=== PATIENT | male | born 1960 | race Caucasian/White ===

== ENCOUNTER 2017-06-21 07:54 | Outpatient (CLI) | payer OTHER ==
[~2017-06-21 07:54] MED LIST: ATOR20TA64 PO; LISI2.5T48 PO; METF750T PO; MONT10TA22 PO; SERT50TA12 PO; SITA100T7 PO; WARF5TAB2 PO
[2017-06-21] MEDS ORDERED: IOHEXOL 100 ML IV ONE (08:34)
== END 2017-06-21 20:47 | disposition home or self-care (01) ==
LOC: SCT 07:54
PROVIDERS: ATTEND Urology
DX: N28.1 Cyst of kidney, acquired (principal); K86.1 Other chronic pancreatitis; K56.41 Fecal impaction; R31.29 Other microscopic hematuria; Z90.49 Acquired absence of other specified parts of digestive tract
CPT/HCPCS: 74178; Q9967

== ENCOUNTER 2019-02-08 16:33 | Inpatient (IN) | payer OTHER ==
[~2019-02-08] VITALS: Ht 193 cm; Wt 117.0 kg
[~2019-02-08 16:33] MED LIST changes: +SITA100T11 PO; -SITA100T7 PO
--- NOTE | 2019-02-08 16:38 | NUR ---
Patient to ER bed 03 to gown for evaluation. Side rails up.
[2019-02-08 16:41] VITALS: BP_SYST 121
[2019-02-08] MEDS ORDERED: MORPHINE 4 MG/ML INJ. SYRINGE IVP ONE (16:45)
--- NOTE | 2019-02-08 16:45 | NUR ---
DR CANO at bedside for ER evaluation
--- NOTE | 2019-02-08 16:50 | NUR ---
Patient comes to ER via ambulance for complications following a fall 1 week ago. Patient is non verbal and obtaining a history is difficult. Sister is at bedside and states that the pain has progressively gotten worse in his RT leg after the fall, so today they called the ambulance for transport to ER. Patient is non ambulatory. Legs are swolen and bruised. Sister states that he has some neurological disorder that has not been diagnosed. No other complaint or injury at this time.
[2019-02-08 17:09] LABS: BASOPHILS % (AUTO) 0.5 % (0.0-2.0); EOSINOPHILS # (AUTO) 0.2 K/uL (0.0-0.4); EOSINOPHILS % (AUTO) 2.8 % (0.0-4.0); HEMATOCRIT 30.5 % (36-54); HEMOGLOBIN 10.3 g/dL (14.0-18.0); LYMPHOCYTES # (AUTO) 1.3 K/uL (1.0-5.5); LYMPHOCYTES % (AUTO) 21.2 % (20.5-51.5); MEAN CORPUSCULAR HEMOGLOBIN 29 pg (27-31); MEAN CORPUSCULAR HGB CONC 34 % (32-36); MEAN CORPUSCULAR VOLUME 85 fL (79.0-98.0); MONOCYTES # (AUTO) 0.5 K/uL (0.0-1.0); MONOCYTES % (AUTO) 7.8 % (1.7-9.3); NEUTROPHILS % (AUTO) 67.7 % (40.0-70.0); PLATELET COUNT (AUTO) 262 K/uL (130-430); RED BLOOD CELL COUNT(AUTO) 3.58 MIL/uL (4.2-6.2); RED CELL DISTRIBUTION WIDTH 12.9 % (9.0-15.0); WHITE BLOOD COUNT (AUTO) 5.9 K/uL (4.8-10.8)
[2019-02-08 17:14] LABS: CALCIUM 9.4 mg/dL (8.4-11.0); CREATININE 0.6 mg/dL (0.55-1.30)
[2019-02-08 17:19] LABS: ALBUMIN 3.2 g/dL (3.4-4.8); TOTAL BILIRUBIN 0.8 mg/dL (0.0-1.0)
--- NOTE | 2019-02-08 17:32 | NUR ---
Radiology at bedside for XRay
[2019-02-08 18:13] LABS: BILIRUBIN,URINE NEGATIVE (NEGATIVE); BLOOD, URINE 1+ (NEGATIVE); CLARITY/URINE HAZY (CLEAR); COLOR,URINE YELLOW (YELLOW); GLUCOSE,URINE NEGATIVE (NEGATIVE); KETONES,URINE NEGATIVE (NEGATIVE); LEUKOCYTE ESTERASE ,URINE 3+ (NEGATIVE); NITRITE, URINE POSITIVE (NEGATIVE); PROTEIN URINE TRACE (NEGATIVE)
[2019-02-08 18:20] LABS: BACTERIA,URINE MANY /HPF (None Seen); MUCUS,URINE None Seen /LPF (None Seen); RBC,URINE NONE SEEN /HPF (0-3); WBC,URINE 50-80 /HPF (0-3)
--- NOTE | 2019-02-08 18:42 | NUR ---
US TECH at bedside for venous doppler
[2019-02-08] MEDS ORDERED: NACL 0.9% 1,000 ML IV ONE ×2 (18:45→19:15)
--- NOTE | 2019-02-08 18:55 | NUR ---
Medicated per MD orders. IVF infusing with no s/s of infiltration at this time. Will cont to monitor
[2019-02-08] MEDS ORDERED: LISI-209 PO (19:44)
[2019-02-08] MEDS ORDERED: GLU850 PO (19:44)
--- NOTE | 2019-02-08 19:45 | NUR ---
Med rec completed and confirmed verbally by sister.
--- NOTE | 2019-02-08 20:00 | NUR ---
Ultrasound at bedside. Will move pt to MST after ultrasound is done.
--- NOTE | 2019-02-08 20:21 | NUR ---
ADMIT NOTE Received pt from ER to the floor with a diagnosis of FEMUR FRACTURE. Admission process initiated. patient oriented to pain management, safety and call light-teach back done.
[2019-02-08 20:38] VITALS: BP_SYST 146
--- NOTE | 2019-02-08 20:45 | NUR ---
INITIAL NOTES PT IS AWAKE , ALERT BUT UNABLE TO TALK WELL ( UNABLE TO PRODUCE SOUND ) . PT S SISTER OMID AT BEDSIDE , ON ROOM AIR , VITALS ARE STABLE ; PER SISTER PT IS VERY DEPRESSED AND HAD SUICIDAL THOUGHTS LAST WEEK , NO ACTIVE SUICIDAL THOUGHTS OR IDEATION NOTED AT THIS TIME . ASSESSMENT DONE , NOTICED R KNEE WITH IMMOBILIZER , PT HAS FALL LAST WEEK PER SISTER , LINDSEY LEGS WITH EDEMA BUT MORE ON THE R LEG ; NO C/O ANY PAIN AT THIS TIME PT IS INCONTINENT WITH URINE , PT CLEANED , NOTICED LINDSEY KNEE WITH DRY SCAB AND HEALING ABRASION , OPEN TOAIR , NO DRAINAGE , R 2 ND TOE WITH DRY SCAB AND 5 TH TOE WITH BLISTER , OPEN TO AIR , ABDOMINAL FOLD IS DENUDED , CLEANED WITH NS , PAT DRIED AND APPLIED INTER DRY . R BUTTOCK NOTED WITH REDNESS AND SCRATCHES . PT CLEANED , TURNED AND REPOSITIONED. ALL NEEDS MET , IV TO THE LEFT AC 20 G, SL , NO S/S OF ANY INFILTRATION NOTED ; WILL CONTINUE TO MONITOR PT .
--- NOTE | 2019-02-08 21:00 | NUR ---
Patient will be admitted to care of Dr Cannon. Admitted to Tele unit. Will go to room 135. Belongings list completed. Summary report printed. Report will be given at bedside.
--- NOTE | 2019-02-08 21:20 | NUR ---
Transfer to Tele via ACLS protocol. Licensed nurse present. IV present no signs or symptoms of infiltration.
[2019-02-08] MEDS ORDERED: DEXTROSE 50% JECT 50 ML DISP.SYRIN IVP PRN (22:00)
--- NOTE | 2019-02-08 22:50 | NUR ---
MD ROUNDS: NOTICED THAT DR RIVAS MADE ROUNDS , WILL CHECK ALL ORDERS .
--- NOTE | 2019-02-08 23:05 | NUR ---
RECEIVED ZARAGOZA INSERTION ORDER FROM DR RIVAS . CALLED AND TALKED WITH SISTER OMID BEFORE INSERTING ZARAGOZA . SISTER AGREED TO INSERT ZARAGOZA .
--- NOTE | 2019-02-08 23:15 | NUR ---
ZARAGOZA CATH: # 12 FR Zaragoza catheter with 10 cc bulb inserted by Bonilla .Marialuisa Hartman with use of sterile technique. Bulb inflated with 10 cc sterile water. Immediate return of 100cc urine noted. Bedside drainage bag placed below level of bladder. Urine sample collected and sent to lab .Pt tolerated procedure well .
[2019-02-09 00:06] VITALS: BP_SYST 129
--- NOTE | 2019-02-09 00:27 | NUR ---
CONSULTATION PAGED/CALLED Reason for Consultation: UNSTEADY GAIT Person Who was Notified: COLLEEN Consulting Physician: EDDIE BETANCOURT Pole Maker Specialty: Ordering Physician: ROB
--- NOTE | 2019-02-09 00:49 | NUR ---
CONSULTATION PAGED/CALLED Reason for Consultation: FX FEMUR Person Who was Notified:COLLEEN Consulting Physician: DENISSE . DOCTOR MARCY IS STRIP DEBURRER Second Floor Operator Specialty: Ordering Physician: ROB
[2019-02-09 01:00] LABS: BILIRUBIN,URINE NEGATIVE (NEGATIVE); CLARITY/URINE CLEAR (CLEAR); COLOR,URINE YELLOW (YELLOW); GLUCOSE,URINE NEGATIVE (NEGATIVE); KETONES,URINE NEGATIVE (NEGATIVE); LEUKOCYTE ESTERASE ,URINE TRACE (NEGATIVE); NITRITE, URINE POSITIVE (NEGATIVE); PROTEIN URINE NEGATIVE (NEGATIVE)
[2019-02-09 01:06] LABS: BLOOD, URINE TRACE (NEGATIVE)
--- NOTE | 2019-02-09 01:07 | NUR ---
RN ROUNDS: PT IS SLEEPING ON AND OFF , NOT IN ANY ACUTE DISTRESS; WILL CONTINUE TO MONITOR PT .
[2019-02-09 01:08] LABS: BACTERIA,URINE MANY /HPF (None Seen)
--- NOTE | 2019-02-09 02:25 | NUR ---
RN ROUNDS: PT IS SLEEPING , NOT IN ANY ACUTE DISTRESS; WILL CONTINUE TO MONITOR PT .
--- NOTE | 2019-02-09 04:13 | NUR ---
RN NOTES: PT IS SLEEPING , RESPIRATION IS EVEN AND NON LABORED ; ZARAGOZA IS DRAINING YELLOW COLOR URINE TO GRAVITY . WILL CONTINUE TO MONITOR PT .
--- NOTE | 2019-02-09 06:09 | NUR ---
BS: BS 129 , NO INSULIN COVERAGE NEEDED ; ALL NEEDS MET
[2019-02-09 06:32] LABS: BASOPHILS % (AUTO) 0.8 % (0.0-2.0); EOSINOPHILS # (AUTO) 0.2 K/uL (0.0-0.4); EOSINOPHILS % (AUTO) 5.2 % (0.0-4.0); HEMATOCRIT 26.5 % (36-54); HEMOGLOBIN 8.9 g/dL (14.0-18.0); LYMPHOCYTES # (AUTO) 1.2 K/uL (1.0-5.5); LYMPHOCYTES % (AUTO) 26.9 % (20.5-51.5); MEAN CORPUSCULAR HEMOGLOBIN 29 pg (27-31); MEAN CORPUSCULAR HGB CONC 34 % (32-36); MEAN CORPUSCULAR VOLUME 85 fL (79.0-98.0); MONOCYTES # (AUTO) 0.4 K/uL (0.0-1.0); MONOCYTES % (AUTO) 8.5 % (1.7-9.3); NEUTROPHILS # (AUTO) 2.7 K/uL (1.8-7.7); NEUTROPHILS % (AUTO) 58.6 % (40.0-70.0); PLATELET COUNT (AUTO) 225 K/uL (130-430); PROTHROMBIN TIME 10.1 SECS (9.5-12.5); RED CELL DISTRIBUTION WIDTH 12.5 % (9.0-15.0); WHITE BLOOD COUNT (AUTO) 4.6 K/uL (4.8-10.8)
[2019-02-09 06:48] LABS: ALBUMIN 2.5 g/dL (3.4-4.8); CALCIUM 8.8 mg/dL (8.4-11.0); CREATININE 0.5 mg/dL (0.55-1.30); FREE T4 (FREE THYROXINE) 1.2 ng/dL (0.6-1.6); POTASSIUM 3.8 mmol/L (3.5-5.1); THYROID STIMULATING HORMONE 0.23 uIu/mL (0.34-4.82); TOTAL BILIRUBIN 0.7 mg/dL (0.0-1.0)
--- NOTE | 2019-02-09 06:49 | NUR ---
CLOSING NOTES: PT IS SLEEPING , NOT IN ANY ACUTE DISTRESS; ALL NEEDS MET ; NO SIGNIFICANT CHANGES IN THE CONDITION ; WILL CONTINUE TO MONITOR AND WILL ENDORSE TO NEXT SHIFT NURSE .
--- NOTE | 2019-02-09 06:55 | NUR ---
MD ROUNDS: DR RIVAS MADE ROUNDS; NOTIFIED MD THAT PER PTS SISTER ," PT HAD SUICIDAL THOUGHTS AND IDEATIONS LAST WEEK AND PT DEPRESSED , ", MD ORDERED PSYCH CONSULT WITH DR HAUSER . ALSO NOTIFIED MD THAT PT S UA IS POSITIVE .MD STATED HE WILL ORDER ANTIBIOTICS.
--- NOTE | 2019-02-09 06:57 | NUR ---
CONSULTATION PAGED/CALLED Reason for Consultation: [] SUICIDAL THOUGHTS Person Who was Notified: [] [place] Consulting Physician: [] DR HAUSER, DR HANSEN J2Ee Engineer Specialty: [] PSYCH Ordering Physician: [] DR RIVAS
--- NOTE | 2019-02-09 07:08 | NUR ---
DR RIVAS NOTIFIED PT HAS NO PAIN MEDICATION ORDERED , ORDERED NORCO 5/325 Q4 HRS FOR MODERATE PAIN ; ORDER ENTERED .
[2019-02-09 07:50] VITALS: BP_SYST 116
[2019-02-09] MEDS: SERTRALINE HCL 50 MG TABLET PO SCH (07:58)
[2019-02-09] MEDS: ENOXAPARIN SODIUM 40 MG/0.4 ML SYRINGE SUBCUT SCH (07:59)
[2019-02-09] MEDS: LISINOPRIL 5 MG TABLET PO SCH (07:59)
[2019-02-09] MEDS ORDERED: GENTAMICIN 120 mg/100 mL NS 100 ML IV ONE (08:00)
[2019-02-09] MEDS: cefTRIAXone 1 GM in D5W 50 ML IV SCH (09:04)
[2019-02-09] MEDS: HYDROcodone/ACETAMIN 5-325 MG TAB (NORCO/ VICODIN) PO PRN ×2 (09:10→18:24)
--- NOTE | 2019-02-09 10:19 | NUR ---
Rounds Family at the bedside , patient able to answer simple question ,short word like pain, follow instruction,right leg able to wiggle toes , moved , dorsiflexion , immobilizer intact,heel floating,anticipate needs.
[2019-02-09 11:14] VITALS: BP_SYST 129
[2019-02-09] MEDS: INSULIN REGULAR, HUMAN 100 UNITS/ML, 10 ML VIAL (novoLIN R) SUBCUT PRN (11:31)
--- NOTE | 2019-02-09 12:45 | NUR ---
Seen and examined by the orthopedic surgeon Dr. VIDAL.
--- NOTE | 2019-02-09 13:40 | NUR ---
Seen and examined by the neurologist spoke to sister GOPAL, with n.o. carried out., patient is awake denies any pain,right leg with immobilizer, with good peripheral sensation, able to wiggle toes , dorsiflex , will monitor.
--- NOTE | 2019-02-09 14:00 | NUR ---
skin care/comfort Perineal care given , no redness or sign of pressure sore , kept dry/clean skin cream barrier applied, repositioned.
[2019-02-09 15:33] VITALS: BP_SYST 109
--- NOTE | 2019-02-09 16:00 | NUR ---
Patient repositioned by staff every 2 hours with pillow support.
--- NOTE | 2019-02-09 19:33 | NUR ---
OPENING NOTE Received patient awake resting supine in no sign of distress and watching t.v. He denied pain and said it was 0/10. VSS and nonlabored breathing on room air. He has right leg imobilizer. Mendez cathether in place and drainage bag is to gravity. Bed is locked to lowest position, side rails up 3x, and bed alarm on. He was instructed on use of call light. Will monitor.
[2019-02-09 20:00] VITALS: BP_SYST 110
--- NOTE | 2019-02-09 21:48 | NUR ---
NOTES Fingerstick BG test was done and result of 119 was obtained, no coverage due. Patient cooperated with procedure.
--- NOTE | 2019-02-09 22:23 | NUR ---
NOTES Patient repositioned for comfort. Presently in no distress and denies pain at this time. Safety precautions maintained.
--- NOTE | 2019-02-09 23:46 | NUR ---
NOTES Patient is awake and pulled out his IV. Catheter tip is intact and no active bleeding noted. Patient was informed a new IV will be started and he nodded yes. Presently he denies pain. He was repositioned and wanted to be supine. Safety precautions in place and call light w/in reach.
[2019-02-10 00:55] VITALS: BP_SYST 113
[2019-02-10] MEDS: HYDROcodone/ACETAMIN 5-325 MG TAB (NORCO/ VICODIN) PO PRN (01:44)
--- NOTE | 2019-02-10 01:45 | NUR ---
NOTES - Pain Patient called the light to report right leg pain 6/10. He was given [place] for moderate pain.
--- NOTE | 2019-02-10 02:38 | NUR ---
IV start A new IV was started, #22 gauge angiocath placed to RAC . Use of asceptic technique and opsite placed over site. Blood return noted. No evidence of infiltration noted. Patient tolerated and wrapped with kirlex.
[2019-02-10 04:10] VITALS: BP_SYST 107
--- NOTE | 2019-02-10 04:34 | NUR ---
NOTES Patient was resting w/eyes closed and easily aroused. V/S taken; B/P 107/54,HR 69. Presently denies pain. He was repositioned to his left side. Bed safety precautions in place.
--- NOTE | 2019-02-10 06:36 | NUR ---
CLOSING NOTE Patient is resting in comfortable position. He was repositioned to right. Fingerstick BG result was 127 and there is no coverage due. Interdry dressing was replaced. Presently denies pain. He also expressed that he is tired of being in bed and wants to go home. Safety precautions maintained. IV SL to RAC. Needs met throughout shift, will endorse.
[2019-02-10] MEDS: cefTRIAXone 1 GM in D5W 50 ML IV SCH (08:13)
[2019-02-10] MEDS: LISINOPRIL 5 MG TABLET PO SCH (08:14)
[2019-02-10] MEDS: SERTRALINE HCL 50 MG TABLET PO SCH (08:14)
[2019-02-10] MEDS: ENOXAPARIN SODIUM 40 MG/0.4 ML SYRINGE SUBCUT SCH (08:15)
--- NOTE | 2019-02-10 09:40 | NUR ---
Nutrition Update Zoran Scale 15 noted. Pt admitted for R femur fracture. Diet: mechanical soft BMI: 32.7 kg/m2 RD to follow per nutrition care standards.
[2019-02-10 12:00] VITALS: BP_SYST 120
[2019-02-10] MEDS ORDERED: CYANOCOBALAMIN 1000 mCg TABLET PO ONE (12:30)
[2019-02-10] MEDS ORDERED: MULTIVITS,CA,MINERALS/IRON/FA 1 TABLET PO ONE (12:30)
[2019-02-10] MEDS ORDERED: CHOLECALCIFEROL (VITAMIN D3) 2,000 UNIT TABLET PO ONE (12:30)
--- NOTE | 2019-02-10 14:18 | NUR ---
Dietitian Recommendations * Recommend mechanical soft, CCHO diet LP, RD Pleaser refer to Nutrition Assessment for details.
[2019-02-10 17:05] VITALS: BP_SYST 102
--- NOTE | 2019-02-10 19:40 | NUR ---
OPENING NOTE Received patient awake resting in bed, in no sign of distress and talking with visitiors. He denied pain and said it was 0/10. Nonlabored breathing on room air. He has right leg imobilizer. Mendez cathether in place and drainage bag is to gravity. Bed is locked to lowest position, side rails up 3x, and bed alarm on. He was instructed on use of call light. Updated board. Will monitor.
[2019-02-10 20:00] VITALS: BP_SYST 134
--- NOTE | 2019-02-10 20:50 | NUR ---
NOTES Patient called for bed dia. He had brown formed stool.
[2019-02-10] MEDS: MULTIVITS,CA,MINERALS/IRON/FA 1 TABLET PO SCH (21:31)
--- NOTE | 2019-02-10 21:37 | NUR ---
NOTES - Medication Fingerstick BG was done w/ result of 130 mg/dL, no coverage due. Patient is reaching for immobilizer and pulling on strap. He managed to loosen the top strap and I secured it with tape. I ask him not to and he listens fof a few seconds and then he keeps attempting to pull it off again. Will monitor.
--- NOTE | 2019-02-10 22:30 | NUR ---
NOTES Patient is presently calm. Nurse university administrative assistant is with patient, providing new blanket. Safety precautions in place and call light w/in reach.
--- NOTE | 2019-02-11 00:04 | NUR ---
NOTES Patient is calm, and no longer pulling on brace. Repositioned for comfort. Safety precautions in place.
[2019-02-11 01:53] VITALS: BP_SYST 107
[2019-02-11] MEDS: HYDROcodone/ACETAMIN 5-325 MG TAB (NORCO/ VICODIN) PO PRN (02:06)
--- NOTE | 2019-02-11 02:14 | NUR ---
notes Patient is awake and watching t.v. He reported moderate pain to his right leg and was given [place] as ordered for moderate pain. He was repositioned to the left and he assisted. He had loosened one strap on the immobilizer and it was secured in place; he was cooperative and left it alone. Will monitor.
--- NOTE | 2019-02-11 04:16 | NUR ---
NOTES Patient was repositioned to right side w/ pillow support. Presently denies pain, nonlabored breathing noted. Safety precautions in place.
--- NOTE | 2019-02-11 06:32 | NUR ---
NOTES Patient's fingerstick BG test was done w/ result of 132 mg/dL. He was positioned for comfort. Presently denies pain. He said needs to have bowel movement and was placed on bed dia. Will follow up.
--- NOTE | 2019-02-11 07:36 | NUR ---
OPENING NOTE Patient resting in the bed. No acute distress. Skin warm and dry to touch. SL intact to RFA, no redness, no swelling, patent. Right leg immobilizer in placed. Able to move leg and toes without difficulty, pulse present. F/C intact, drain gravity. Safety measure maintained. Bed locked in low position, side rails up, bed alarm on. Call light within reached. Will continue to monitor.
[2019-02-11 07:50] VITALS: BP_SYST 113
[2019-02-11] MEDS: cefTRIAXone 1 GM in D5W 50 ML IV SCH (10:00)
--- NOTE | 2019-02-11 10:00 | NUR ---
SEEN AND EXAMINED BY EDDIE NASCIMENTO. Per Dr. Bragg requested the medical record from [facility], will asked daughter to obtained consent.
[2019-02-11] MEDS: SERTRALINE HCL 50 MG TABLET PO SCH (10:01)
[2019-02-11] MEDS: ENOXAPARIN SODIUM 40 MG/0.4 ML SYRINGE SUBCUT SCH (10:01)
[2019-02-11] MEDS: MULTIVITS,CA,MINERALS/IRON/FA 1 TABLET PO SCH ×2 (10:01→21:49)
[2019-02-11] MEDS: LISINOPRIL 5 MG TABLET PO SCH (10:02)
[2019-02-11] MEDS: CHOLECALCIFEROL (VITAMIN D3) 2,000 UNIT TABLET PO SCH (10:02)
[2019-02-11] MEDS: CYANOCOBALAMIN 1000 mCg TABLET PO SCH (10:02)
[2019-02-11 10:58] LABS: CREATININE 0.64 mg/dL (0.55-1.30); POTASSIUM 3.8 mmol/L (3.5-5.1)
[2019-02-11 11:10] LABS: BASOPHILS % (AUTO) 0.5 % (0.0-2.0); EOSINOPHILS # (AUTO) 0.2 K/uL (0.0-0.4); EOSINOPHILS % (AUTO) 2.6 % (0.0-4.0); HEMATOCRIT 32.6 % (36-54); HEMOGLOBIN 10.7 g/dL (14.0-18.0); LYMPHOCYTES # (AUTO) 1.2 K/uL (1.0-5.5); LYMPHOCYTES % (AUTO) 18.2 % (20.5-51.5); MEAN CORPUSCULAR HEMOGLOBIN 28 pg (27-31); MEAN CORPUSCULAR HGB CONC 33 % (32-36); MEAN CORPUSCULAR VOLUME 86 fL (79.0-98.0); MONOCYTES # (AUTO) 0.4 K/uL (0.0-1.0); MONOCYTES % (AUTO) 6.4 % (1.7-9.3); NEUTROPHILS # (AUTO) 4.9 K/uL (1.8-7.7); NEUTROPHILS % (AUTO) 72.3 % (40.0-70.0); PLATELET COUNT (AUTO) 335 K/uL (130-430); RED CELL DISTRIBUTION WIDTH 12.7 % (9.0-15.0); WHITE BLOOD COUNT (AUTO) 6.7 K/uL (4.8-10.8)
[2019-02-11] MEDS: INSULIN REGULAR, HUMAN 100 UNITS/ML, 10 ML VIAL (novoLIN R) SUBCUT PRN ×3 (11:25→21:57)
[2019-02-11 12:12] VITALS: BP_SYST 100
--- NOTE | 2019-02-11 12:17 | NUR ---
Therapeutic Recreation Specialist: DUST BOX TENDER and SARA Harris met with pt. bedside. Pt. was nice and willingly participated in this interview. DUST BOX TENDER confirmed pt. contact info, emergency contact info and asked about an advanced directive. Pt. stated he does have one. DUST BOX TENDER asked if he could have his sister, support system, emergency contact, to bring a copy in. Pt. agreed. Pt. was assessed for mental health. Pt. stated he does get depressed at times but does not want to harm himself. DUST BOX TENDER asked if she could leave some mental health resources for him and he was agreeable. DUST BOX TENDER asked if he had any questions or concerns. Pt. stated that he does not. DUST BOX TENDER let pt. know that she was located at the hospital and if he had any questions, the nurse could help him contact her in her office. DUST BOX TENDER will remain available as needed.
--- NOTE | 2019-02-11 12:29 | NUR ---
Discharge Planning: DCP faxed pt referral to [facility] (f [phone] p [phone]) DCP to follow up. Addendum: 02/11/19 at 1603 by Marisabel Villagran DP Gwen from [facility] (f [phone] p [phone]) was inquiring about DC plan after rehab. Gwen stated she will contact sister of pt Kayleigh Vargasols [phone]. Gwen also said she would need PT notes, if a good candidate. Addendum: 02/11/19 at 1606 by Marisabel Villagran DP DCP faxed pt referral to [facility] (f [phone] p [phone]) DCP to follow up.
--- NOTE | 2019-02-11 12:30 | NUR ---
SEEN AND EXAMINED BY DR. RIVAS [facility].
--- NOTE | 2019-02-11 13:45 | NUR ---
MRI CANNOT DONE Per MRI department, patient cannot lying flat. MRI cannot done.
--- NOTE | 2019-02-11 14:10 | NUR ---
CALLED PATIENT'S DAUGHTER FOR CONSENT OF RELEASE MEDICAL INFORMATION Called and informed patient's daughter-Kayleigh Jewell for release medical information from [facility]. Per Kayleigh patient never in [facility] only went to doctor's office that is okay to release information from doctor's office. Telephone consent obtained.
[2019-02-11 16:17] VITALS: BP_SYST 122; BP_SYST 99
--- NOTE | 2019-02-11 16:36 | NUR ---
PAGED DR. RIVAS SPOKE TO MAHENDRA DIALED [phone]
[2019-02-11] MEDS ORDERED: DOCUSATE SODIUM 250 MG CAPSULE PO ONE (17:45)
--- NOTE | 2019-02-11 18:55 | NUR ---
CLOSING NOTE Patient resting in the bed. No acute distress. Skin warm and dry to touch. SL intact to RFA, no redness, no swelling, patent. Right leg immobilizer in placed. Able to move leg and toes without difficulty, pulse present. F/C intact, drain gravity. All needs met. Safety measure maintained. Bed locked in low position, side rails up, bed alarm on. Call light within reached. Will endorse to night nurse.
--- NOTE | 2019-02-11 19:30 | NUR ---
Pt was received lying in bed fully awake, alert and oriented x3. Speech is clear and pt is able to make his needs known. No c/o pain or discomfort. Skin is warm and dry to touch. No signs or symptoms of hypoglycemia or hyperglycemia noted. Right knee immobilizer is in place and neurovascular checks to BLE are WNL. Saline lock in RAC is without any signs of infiltration. Mendez catheter to gravity drainage is secured in place and draining clear yellowish urine. Fall and safety precautions are in place. Call light is with pt and bed alarm is on.
[2019-02-11 20:00] VITALS: BP_SYST 90
[2019-02-11] MEDS: DOCUSATE SODIUM 250 MG CAPSULE PO SCH (21:00)
--- NOTE | 2019-02-11 21:57 | NUR ---
Accucheck 168 and skin remains warm and dry to touch. 2 units Regular Insulin was given SQ. pt was offered HS snacks, but pt declined. Call light is with pt and bed alarm is on.
--- NOTE | 2019-02-12 | NUR ---
Pt is resting without any distress noted. Fall and safety precautions are in place. Saline lock in RAC is without any signs of infiltration.
[2019-02-12 00:55] VITALS: BP_SYST 92
--- NOTE | 2019-02-12 02:00 | NUR ---
Pt is awake and resting quietly in bed. No c/o pain or discomfort. Call light is with pt and bed alarm is on.
--- NOTE | 2019-02-12 04:00 | NUR ---
Pt is sleeping and easily arousable. Neurovascular checks to BLE are WNL. Rt knee immobilizer is in place. Saline lock is intact in RFA. Call light is with pt and bed alarm is on.
--- NOTE | 2019-02-12 06:30 | NUR ---
Pt is awake and not in any distress. Will endorse to day shift nurse.
--- NOTE | 2019-02-12 07:30 | NUR ---
OPENING NOTE Patient resting in the bed. No acute distress. Skin warm and dry to touch. SL intact to RFA, no redness, no swelling, patent. Right leg immobilizer in placed. Able to move leg and toes without difficulty, pulse present. F/C intact, drain gravity with rya urine. Safety measure maintained. Bed locked in low position, side rails up, bed alarm on. Call light within reached. Will continue to monitor.
[2019-02-12 07:40] VITALS: BP_SYST 105
[2019-02-12] MEDS: CHOLECALCIFEROL (VITAMIN D3) 2,000 UNIT TABLET PO SCH (09:36)
[2019-02-12] MEDS: cefTRIAXone 1 GM in D5W 50 ML IV SCH (09:36)
[2019-02-12] MEDS: DOCUSATE SODIUM 250 MG CAPSULE PO SCH ×2 (09:36→21:03)
[2019-02-12] MEDS: MULTIVITS,CA,MINERALS/IRON/FA 1 TABLET PO SCH ×2 (09:36→21:03)
[2019-02-12] MEDS: SERTRALINE HCL 50 MG TABLET PO SCH (09:37)
[2019-02-12] MEDS: CYANOCOBALAMIN 1000 mCg TABLET PO SCH (09:37)
[2019-02-12] MEDS: LISINOPRIL 5 MG TABLET PO SCH (09:42)
[2019-02-12] MEDS: ENOXAPARIN SODIUM 40 MG/0.4 ML SYRINGE SUBCUT SCH (09:45)
--- NOTE | 2019-02-12 10:48 | NUR ---
ATIVAN GIVEN Ativan 1mg IVP given prior for MRI. Patient resting in the bed. Radiology transported patient for MRI via bed with 2 staff. Patient left in stable condition.
--- NOTE | 2019-02-12 11:08 | NUR ---
BACK TO UNIT FROM MRI VIA BED IN STABLE CONDITION. MRI NOT DONE DUE TO PATIENT CANNOT LAYING FLAT.
--- NOTE | 2019-02-12 11:34 | NUR ---
Discharge Layla DCP spoke to Jennifer from [facility] (f [phone] p [phone]) Ministerio will come see patient. Addendum: 02/12/19 at 1136 by Marisabel Villagran DP Patient was accepted to [facility] Addendum: 02/12/19 at 1512 by Marisabel Villagran DP Jennifer from [facility] (f [phone] p [phone]) [facility], transportation [facility] ([phone]). MAGDALENAP made nurse aware that after pending CT patient can be transported to SNF. Addendum: 02/12/19 at 1514 by Marisabel Villagran DP ambulance is on WILL CALL with [facility]
[2019-02-12 11:47] VITALS: BP_SYST 107
--- NOTE | 2019-02-12 13:40 | NUR ---
SEEN AND EXAMINED BY ALYSSA MATHEW WITH ORDERS.
[2019-02-12] MEDS: LR 1,000 ML IV SCH (13:44)
[2019-02-12] MEDS ORDERED: IOHEXOL 100 ML IV ONE (15:37)
--- NOTE | 2019-02-12 15:49 | NUR ---
OFF UNIT FOR CT OF HEAD AND NECK VIA BED IN STABLE CONDITION.
--- NOTE | 2019-02-12 16:02 | NUR ---
Endocrine consult called: for Dr. Blevins, regarding low TSH, ordered by Dr. Cannon, spoke with Katty
[2019-02-12 16:22] VITALS: BP_SYST 96
--- NOTE | 2019-02-12 16:22 | NUR ---
BACK TO UNIT FROM CT OF NECK AND HEAD IN STABLE CONDITION VIA BED.
[2019-02-12] MEDS ORDERED: LORazepam 2 MG/ML VIAL IVP ONE (17:15)
[2019-02-12] MEDS: INSULIN REGULAR, HUMAN 100 UNITS/ML, 10 ML VIAL (novoLIN R) SUBCUT PRN (17:19)
--- NOTE | 2019-02-12 17:25 | NUR ---
SISTER VISITED Informed to patient's sister Kayleigh, MRI not done due to patient cannot lying flat. CT of neck and head done, the result pending, verbally understanding.
--- NOTE | 2019-02-12 18:48 | NUR ---
CLOSING NOTE Patient resting in the bed. No acute distress. Skin warm and dry to touch. SL intact to RFA, no redness, no swelling, no drainage. On LR at 100ml/hr, infusing well. Right leg immobilizer in placed. Able to move leg and toes without difficulty, pulse present. F/C intact, drain gravity with ray urine. All needs met. Safety measure maintained. Bed locked in low position, side rails up, bed alarm on. Call light within reached. Will endorse to night nurse.
--- NOTE | 2019-02-12 19:15 | NUR ---
Pt was received lying in bed fully awake, alert and oriented x3. Pt mumbles words and is able to make his needs known. Pt denies pain or discomfort at this time. Skin is warm and dry to touch. No signs or symptoms of hypoglycemia or hyperglycemia noted. Right knee immobilizer is in place and neurovascular checks to BLE are WNL. IVF of LR is infusing well in RAC at 100ml/hr without any signs of infiltration at the IV site. Mendez catheter to gravity drainage is secured in place and draining clear yellowish urine. Fall and safety precautions are in place. Call light is with pt and bed alarm is on.
[2019-02-12 20:00] VITALS: BP_SYST 98
--- NOTE | 2019-02-12 21:04 | NUR ---
Accucheck 140 and no Insulin coverage needed. Skin remains warm and dry to touch. Pt was offered HS snacks, but pt declined. IVF of LR is infusing well in RAC at 100ml/hr. Call light is with pt and bed alarm is on.
--- NOTE | 2019-02-12 23:00 | NUR ---
Pt is resting quietly in bed without any distress noted. IVF of LR is infusing well in RAC at 100ml/hr without any signs of infiltration. Fall and safety precautions are in place.
[2019-02-12 23:30] VITALS: BP_SYST 98
--- NOTE | 2019-02-13 | NUR ---
Pt is resting quietly in bed. Neurovascular checks to BLE are WNL. Rt knee immobilizer is in place. IVF is infusing well in RFA. Call light is with pt and bed alarm is on.
[2019-02-13] MEDS: LR 1,000 ML IV SCH ×2 (01:06→12:18)
--- NOTE | 2019-02-13 02:00 | NUR ---
Pt is sleeping without any distress noted. Call light is with pt and bed alarm is on. IVF is infusing well in [facility] [place].
--- NOTE | 2019-02-13 04:00 | NUR ---
Pt is sleeping and easily arousable. Neurovascular checks to BLE are WNL. Rt knee immobilizer is in place. IVF is infusing well in RAC. Call light is with pt and bed alarm is on.
--- NOTE | 2019-02-13 06:24 | NUR ---
Pt is awake and not in any distress. Accucheck 122 this AM and no Insulin coverage needed. Skin remains warm and dry to touch. IVF is infusing well in RAC. Will endorse to day shift nurse.
--- NOTE | 2019-02-13 07:15 | NUR ---
received report at the bedside. patient alert awake x 2. but just nod. refuses to talk. lungs bilaterally diminished at the bases. abdomen soft and non distended. has iv access on the rt forearm #22. with iv fluids of LR 100cc/hr infusing on well. both legs bilaterally discolored. rt foot on the 2nd toe and 5th toe. red/brown color no drainage noted. dry. has ledezma catheter draining yellow color with adequate amount. has immobilizer on the rt leg. in placed. hourly rounding and repositioned the patient.
--- NOTE | 2019-02-13 08:00 | NUR ---
eating breakfast slowly but eat 85% of food taken.
[2019-02-13] MEDS: LISINOPRIL 5 MG TABLET PO SCH (09:00)
[2019-02-13] MEDS: ENOXAPARIN SODIUM 40 MG/0.4 ML SYRINGE SUBCUT SCH (09:03)
[2019-02-13] MEDS: DOCUSATE SODIUM 250 MG CAPSULE PO SCH (09:04)
[2019-02-13] MEDS: CHOLECALCIFEROL (VITAMIN D3) 2,000 UNIT TABLET PO SCH (09:04)
[2019-02-13] MEDS: MULTIVITS,CA,MINERALS/IRON/FA 1 TABLET PO SCH (09:04)
[2019-02-13] MEDS: CYANOCOBALAMIN 1000 mCg TABLET PO SCH (09:04)
[2019-02-13] MEDS: cefTRIAXone 1 GM in D5W 50 ML IV SCH (09:04)
[2019-02-13 09:08] VITALS: BP_SYST 91
--- NOTE | 2019-02-13 10:00 | NUR ---
due medication given. one by one with water.
--- NOTE | 2019-02-13 12:00 | NUR ---
latest bs 133mg/dl. no coverage given.
[2019-02-13 13:01] VITALS: BP_SYST 97
--- NOTE | 2019-02-13 15:01 | NUR ---
DC PLANNING: SPOKE WITH NURSE (EM), CURRENTLY WAITING FOR DR. OSBORNE TO EVALUATE PATIENT BEFORE DC. TRANSPORTATION HAS BEEN PLACE ON WILL CALL. DC PACKET AT NURSING STATION. NURSE MADE AWARE.
--- NOTE | 2019-02-13 16:00 | NUR ---
turn to sides. and made comfortable.
[2019-02-13 16:06] VITALS: BP_SYST 100
[2019-02-13 16:52] VITALS: BP_SYST 108
[2019-02-13 17:48] LABS: BILIRUBIN,URINE NEGATIVE (NEGATIVE); BLOOD, URINE 3+ (NEGATIVE); CLARITY/URINE SL HAZY (CLEAR); COLOR,URINE YELLOW (YELLOW); GLUCOSE,URINE NEGATIVE (NEGATIVE); KETONES,URINE NEGATIVE (NEGATIVE); LEUKOCYTE ESTERASE ,URINE NEGATIVE (NEGATIVE); NITRITE, URINE NEGATIVE (NEGATIVE); PH,URINE 6.5 (5.0-8.0); PROTEIN URINE 2+ (NEGATIVE)
--- NOTE | 2019-02-13 18:28 | NUR ---
latest bs 133mg/dl. no coverage given. photos taken rt foot. 2nd toe and fifth toe. dry and intact.
[2019-02-13 18:45] LABS: BACTERIA,URINE FEW /HPF (None Seen); MUCUS,URINE None Seen /LPF (None Seen); RBC,URINE >100 /HPF (0-3); WBC,URINE 0-3 /HPF (0-3)
--- NOTE | 2019-02-13 19:20 | NUR ---
endorsed to incoming nurse Syeda PERDOMO.
--- NOTE | 2019-02-13 19:30 | NUR ---
Pt was received lying in bed fully awake, alert and oriented x3. Pt is being transferred to [facility] and is awaiting Ambulance's arrival. Pt denies pain or discomfort at this time. Skin is warm and dry to touch. No signs or symptoms of hypoglycemia or hyperglycemia noted. Right knee immobilizer is in place and neurovascular checks to BLE are WNL. Saline lock is intact in RAC without any signs of infiltration. Mendez catheter to gravity drainage is secured in place and draining clear yellowish urine. Fall and safety precautions are in place. Call light is with pt and bed alarm is on.
--- NOTE | 2019-02-13 19:30 | NUR ---
[facility] called notifying us that they will be late to seed cone picker the pt and will be here in 20 minutes, spoke to Red.
--- NOTE | 2019-02-13 20:10 | NUR ---
Pt's sister Kayleigh is at the Nurses' Station and she signed pt's transfer acknowledgement form.
--- NOTE | 2019-02-13 20:20 | NUR ---
Pt was transferred to [facility] by Ambulance in stable condition. Pt remains fully awake, alert and oriented x3. No c/o pain or discomfort. Saline lock in RAC, right knee immobilizer and Mendez cath were left in place. Wrist ID band was removed and placed in the shredder. Plain ID band with pt's name and was applied to pt's wrist.
[2019-02-13] MEDS ORDERED: SERTRALINE HCL 50 MG TABLET PO SCH (21:00)
== END 2019-02-13 20:20 | DRG 534 ==
LOC: SED 16:33 → STU 19:02 → SMU 02-10 11:29
PROVIDERS: ADMIT Internal Medicine; ATTEND Internal Medicine
DX: S72.401A Unspecified fracture of lower end of right femur, initial encounter for closed fracture (principal); E11.9 Type 2 diabetes mellitus without complications; I10 Essential (primary) hypertension; R56.9 Unspecified convulsions; F32.9 Major depressive disorder, single episode, unspecified; W05.0XXA Fall from non-moving wheelchair, initial encounter; E66.9 Obesity, unspecified; D64.9 Anemia, unspecified; R49.0 Dysphonia; M85.80 Other specified disorders of bone density and structure, unspecified site; Z86.73 Personal history of transient ischemic attack (TIA), and cerebral infarction without residual deficits; Z86.718 Personal history of other venous thrombosis and embolism; Z79.01 Long term (current) use of anticoagulants; Z99.3 Dependence on wheelchair; Z91.030 Bee allergy status; Z79.899 Other long term (current) drug therapy; Z79.84 Long term (current) use of oral hypoglycemic drugs; Y93.89 Activity, other specified; Y99.8 Other external cause status; Z68.31 Body mass index [BMI] 31.0-31.9, adult; Y92.009 Unspecified place in unspecified non-institutional (private) residence as the place of occurrence of the external cause; Z79.4 Long term (current) use of insulin
CPT/HCPCS: 36415; 70470-TC; 70498; 73564; 80048; 80053; 81000-TC; 82607; 82962; 83605; 84439; 84443-TC; 85025; 85610-TC; 85730-TC; 87040-TC; 87086; 87186-TC; 93971; 95816; 96361; 96374; 99285; G0378; J0696; J1580; J1650; J1815; J1956; J2060; J2270; J7030; J7060; J7120; Q9967

== ENCOUNTER 2022-05-27 13:12 | Inpatient (IN) | payer OTHER, MEDICAID ==
[~2022-05-27] VITALS: Ht 193 cm; Wt 111.1 kg
[~2022-05-27 13:12] MED LIST changes: +ACET325T PO; -ATOR20TA64 PO; +BACTROBAN NS; +CYAN100010 PO; +Cholestyramine/Sucrose PO; +DIF100 PO; +FLEETMO RC; +LACT1CAP57 PO; -LISI2.5T48 PO; +LOT1%CR30 TP; +LOVI30 SQ; +MAG360OR83 PO; -METF750T PO; -MONT10TA22 PO; +MULT-1117 PO; +ONDA4TAB5 PO; +SENN8.6T19 PO; +SERT-436 PO; -SERT50TA12 PO; -SITA100T11 PO; +SSREG SUBCUT; +VANC250C11 PO; +VITD2000 PO; -WARF5TAB2 PO
[2022-05-27 13:19] VITALS: BP_SYST 139
[2022-05-27] MEDS ORDERED: MAG HYDROX/AL HYDROX/SIMETH 30 ML, DICYCLOMINE HCL 20 MG, LIDOCAINE VISCOUS 2% 15ML (PO... PO ONE ×3 (13:45)
[2022-05-27] MEDS ORDERED: NACL 0.9% 1,000 ML IV ONE ×2 (13:45→19:30)
[2022-05-27] MEDS ORDERED: ONDANSETRON HCL 4 MG/2 ML VIAL IVP ONE (13:45)
[2022-05-27 13:58] LABS: BASOPHILS % (AUTO) 0.4 % (0.0-2.0); EOSINOPHILS # (AUTO) 0.1 K/uL (0.0-0.4); EOSINOPHILS % (AUTO) 3.4 % (0.0-4.0); LYMPHOCYTES # (AUTO) 0.9 K/uL (1.0-5.5); LYMPHOCYTES % (AUTO) 25.6 % (20.5-51.5); MEAN CORPUSCULAR VOLUME 86 fL (79.0-98.0); MONOCYTES # (AUTO) 0.3 K/uL (0.0-1.0); NEUTROPHILS # (AUTO) 2.2 K/uL (1.8-7.7); NEUTROPHILS % (AUTO) 61.6 % (40.0-70.0); PLATELET COUNT (AUTO) 238 K/uL (130-430); RED BLOOD CELL COUNT(AUTO) 4.19 MIL/uL (4.2-6.2); RED CELL DISTRIBUTION WIDTH 13.1 % (9.0-15.0); WHITE BLOOD COUNT (AUTO) 3.5 K/uL (4.8-10.8)
[2022-05-27 14:09] LABS: CALCIUM 9.6 mg/dL (8.4-11.0); CREATININE 0.95 mg/dL (0.55-1.30); POTASSIUM 4.3 mmol/L (3.5-5.1)
[2022-05-27 14:16] LABS: ALBUMIN 3.1 g/dL (3.4-4.8); TOTAL BILIRUBIN 0.4 mg/dL (0.0-1.0)
[2022-05-27] MEDS ORDERED: FAMO-279 PO (16:10)
[2022-05-27] MEDS ORDERED: CEPH-548 PO (16:58)
[2022-05-27] MEDS ORDERED: cefTRIAXone 1 GM in D5W 50 ML IV ONE (17:00)
[2022-05-27] MEDS ORDERED: cefTRIAXone 1 GM VIAL ONE (17:54)
[2022-05-27 21:10] VITALS: BP_SYST 101
[2022-05-27] MEDS ORDERED: ONDANSETRON HCL 4 MG/2 ML VIAL IVP PRN (21:30)
[2022-05-27] MEDS ORDERED: MAG-AL HYDROX/SIMETH 30 ML UDC PO PRN (21:30)
[2022-05-27] MEDS ORDERED: ACETAMINOPHEN 325 MG TABLET PO PRN (21:30)
[2022-05-27] MEDS ORDERED: PANTOPRAZOLE SODIUM 40 MG/VIAL (PROTONIX) IVP ONE (21:30)
[2022-05-27] MEDS ORDERED: LACTULOSE 20 GM/30 ML UDC PO ONE (21:30)
[2022-05-27] MEDS ORDERED: INSULIN REGULAR, HUMAN 100 UNITS/ML, 3 ML VIAL (humuLIN R) SUBCUT PRN (21:30)
[2022-05-27] MEDS ORDERED: DEXTROSE 50% JECT 50 ML DISP.SYRIN IVP PRN (21:30)
[2022-05-27] MEDS ORDERED: MINERAL OIL 30 ML UDC PO ONE (21:30)
[2022-05-27 22:00] VITALS: BP_SYST 101
[2022-05-27] MEDS: LR 1,000 ML IV SCH (23:55)
[2022-05-28 01:30] VITALS: BP_SYST 108
[2022-05-28] MEDS: LR 1,000 ML IV SCH ×2 (06:37→17:04)
[2022-05-28 08:10] VITALS: BP_SYST 128
[2022-05-28 08:32] VITALS: BP_SYST 128
[2022-05-28 08:58] LABS: ALBUMIN 2.7 g/dL (3.4-4.8); CALCIUM 8.4 mg/dL (8.4-11.0); CREATININE 0.81 mg/dL (0.55-1.30); POTASSIUM 4.6 mmol/L (3.5-5.1); TOTAL BILIRUBIN 0.3 mg/dL (0.0-1.0)
[2022-05-28] MEDS: CYANOCOBALAMIN 1000 mCg TABLET PO SCH (09:00)
[2022-05-28] MEDS: LACTOBACILLUS RHAMNOSUS GG 1 CAP CAPSULE PO SCH ×2 (09:00→20:24)
[2022-05-28] MEDS: MULTIVITAMINS TAB 1 TABLET PO SCH (09:01)
[2022-05-28] MEDS: ENOXAPARIN SODIUM 40 MG/0.4 ML SYRINGE SQ SCH (09:01)
[2022-05-28] MEDS: MINERAL OIL 30 ML UDC PO SCH ×2 (09:03→21:00)
[2022-05-28] MEDS: PANTOPRAZOLE SODIUM 40 MG/VIAL (PROTONIX) IVP SCH (09:04)
[2022-05-28] MEDS: CHOLECALCIFEROL (VITAMIN D3) 2,000 UNIT TABLET PO SCH (09:04)
[2022-05-28] MEDS: CLOTRIMAZOLE 1% TOPICAL CREAM 15 GM TP SCH ×2 (09:16→22:20)
[2022-05-28] MEDS: LACTULOSE 20 GM/30 ML UDC PO SCH ×3 (09:17→21:00)
[2022-05-28 11:25] VITALS: BP_SYST 131
[2022-05-28 14:15] LABS: BASOPHILS % (AUTO) 0.4 % (0.0-2.0); EOSINOPHILS # (AUTO) 0.2 K/uL (0.0-0.4); HEMATOCRIT 33.5 % (36-54); LYMPHOCYTES # (AUTO) 1.1 K/uL (1.0-5.5); LYMPHOCYTES % (AUTO) 27.2 % (20.5-51.5); MEAN CORPUSCULAR VOLUME 87 fL (79.0-98.0); MONOCYTES # (AUTO) 0.4 K/uL (0.0-1.0); NEUTROPHILS # (AUTO) 2.4 K/uL (1.8-7.7); NEUTROPHILS % (AUTO) 59.4 % (40.0-70.0); PLATELET COUNT (AUTO) 206 K/uL (130-430); RED BLOOD CELL COUNT(AUTO) 3.84 MIL/uL (4.2-6.2); RED CELL DISTRIBUTION WIDTH 13.3 % (9.0-15.0); WHITE BLOOD COUNT (AUTO) 4.1 K/uL (4.8-10.8)
[2022-05-28 15:35] VITALS: BP_SYST 113
[2022-05-28] MEDS: cefTRIAXone 1 GM in D5W 50 ML IV SCH (17:23)
[2022-05-28 20:00] VITALS: BP_SYST 113
[2022-05-28] MEDS: SERTRALINE HCL 50 MG TABLET PO SCH (20:23)
[2022-05-29] VITALS: BP_SYST 105
[2022-05-29] MEDS: LR 1,000 ML IV SCH ×3 (05:28→16:35)
[2022-05-29 08:13] VITALS: BP_SYST 149
[2022-05-29] MEDS: LACTOBACILLUS RHAMNOSUS GG 1 CAP CAPSULE PO SCH ×2 (08:40→23:19)
[2022-05-29] MEDS: CHOLECALCIFEROL (VITAMIN D3) 2,000 UNIT TABLET PO SCH (08:40)
[2022-05-29] MEDS: CYANOCOBALAMIN 1000 mCg TABLET PO SCH (08:40)
[2022-05-29] MEDS: MULTIVITAMINS TAB 1 TABLET PO SCH (08:40)
[2022-05-29] MEDS: ENOXAPARIN SODIUM 40 MG/0.4 ML SYRINGE SQ SCH (08:41)
[2022-05-29] MEDS: PANTOPRAZOLE SODIUM 40 MG/VIAL (PROTONIX) IVP SCH (08:41)
[2022-05-29] MEDS: LACTULOSE 20 GM/30 ML UDC PO SCH ×3 (08:41→23:20)
[2022-05-29] MEDS: CLOTRIMAZOLE 1% TOPICAL CREAM 15 GM TP SCH ×2 (08:42→23:22)
[2022-05-29] MEDS: MINERAL OIL 30 ML UDC PO SCH ×2 (08:42→23:22)
[2022-05-29 11:50] VITALS: BP_SYST 129
[2022-05-29 11:51] LABS: ALBUMIN 2.5 g/dL (3.4-4.8); CREATININE 0.82 mg/dL (0.55-1.30); PHOSPHORUS 2.8 mg/dL (2.7-4.5)
[2022-05-29 14:34] LABS: BILIRUBIN,URINE NEGATIVE (NEGATIVE); BLOOD, URINE 1+ (NEGATIVE); COLOR,URINE YELLOW (YELLOW); GLUCOSE,URINE NEGATIVE (NEGATIVE); KETONES,URINE NEGATIVE (NEGATIVE); LEUKOCYTE ESTERASE ,URINE 3+ (NEGATIVE); NITRITE, URINE POSITIVE (NEGATIVE); PH,URINE 6.5 (5.0-8.0); PROTEIN URINE NEGATIVE (NEGATIVE); UROBILINOGEN,URINE 0.2 (0.2-1.0)
[2022-05-29 14:55] LABS: CLARITY/URINE SLIGHTLY CLOUDY (CLEAR)
[2022-05-29 15:44] LABS: EOSINOPHILS # (AUTO) 0.2 K/uL (0.0-0.4); EOSINOPHILS % (AUTO) 4.9 % (0.0-4.0); HEMATOCRIT 33.4 % (36-54); LYMPHOCYTES # (AUTO) 1.2 K/uL (1.0-5.5); LYMPHOCYTES % (AUTO) 29.6 % (20.5-51.5); MEAN CORPUSCULAR VOLUME 89 fL (79.0-98.0); MONOCYTES # (AUTO) 0.3 K/uL (0.0-1.0); MONOCYTES % (AUTO) 7.8 % (1.7-9.3); NEUTROPHILS # (AUTO) 2.3 K/uL (1.8-7.7); NEUTROPHILS % (AUTO) 56.7 % (40.0-70.0); PLATELET COUNT (AUTO) 222 K/uL (130-430); RED BLOOD CELL COUNT(AUTO) 3.78 MIL/uL (4.2-6.2); RED CELL DISTRIBUTION WIDTH 13.2 % (9.0-15.0)
[2022-05-29 15:46] LABS: BACTERIA,URINE None Seen /HPF (None Seen); MUCUS,URINE 1+ /LPF (None Seen)
[2022-05-29 16:43] LABS: CALCIUM 8.8 mg/dL (8.4-11.0); POTASSIUM 4.4 mmol/L (3.5-5.1); TOTAL BILIRUBIN 0.3 mg/dL (0.0-1.0)
[2022-05-29 16:52] VITALS: BP_SYST 124
[2022-05-29] MEDS: cefTRIAXone 1 GM in D5W 50 ML IV SCH (17:41)
[2022-05-29 19:00] VITALS: BP_SYST 143
[2022-05-29 20:00] VITALS: BP_SYST 143
[2022-05-29] MEDS: SERTRALINE HCL 50 MG TABLET PO SCH (23:24)
[2022-05-30] VITALS: BP_SYST 138
[2022-05-30] MEDS: LR 1,000 ML IV SCH (05:22)
[2022-05-30 07:00] VITALS: BP_SYST 150
[2022-05-30 08:00] VITALS: BP_SYST 150
[2022-05-30] MEDS: ENOXAPARIN SODIUM 40 MG/0.4 ML SYRINGE SQ SCH (08:36)
[2022-05-30] MEDS: LACTOBACILLUS RHAMNOSUS GG 1 CAP CAPSULE PO SCH (08:36)
[2022-05-30] MEDS: MINERAL OIL 30 ML UDC PO SCH (08:36)
[2022-05-30] MEDS: CHOLECALCIFEROL (VITAMIN D3) 2,000 UNIT TABLET PO SCH (08:36)
[2022-05-30] MEDS: CYANOCOBALAMIN 1000 mCg TABLET PO SCH (08:36)
[2022-05-30] MEDS: LACTULOSE 20 GM/30 ML UDC PO SCH ×2 (08:36→15:00)
[2022-05-30] MEDS: PANTOPRAZOLE SODIUM 40 MG/VIAL (PROTONIX) IVP SCH (08:36)
[2022-05-30] MEDS: MULTIVITAMINS TAB 1 TABLET PO SCH (08:36)
[2022-05-30] MEDS: CLOTRIMAZOLE 1% TOPICAL CREAM 15 GM TP SCH (08:40)
[2022-05-30 09:14] LABS: ALBUMIN 2.7 g/dL (3.4-4.8); CREATININE 0.97 mg/dL (0.55-1.30); POTASSIUM 4.2 mmol/L (3.5-5.1); TOTAL BILIRUBIN 0.3 mg/dL (0.0-1.0)
[2022-05-30] MEDS ORDERED: DOCU250C14 PO (16:56)
[2022-05-30 16:59] VITALS: BP_SYST 150
== END 2022-05-30 19:30 | disposition home health service (06) | DRG 689 ==
LOC: SED 13:12 → STU 17:40
PROVIDERS: ADMIT Internal Medicine; ATTEND Internal Medicine
DX: N39.0 Urinary tract infection, site not specified (principal); K85.90 Acute pancreatitis without necrosis or infection, unspecified; E11.9 Type 2 diabetes mellitus without complications; F32.A Depression, unspecified; I10 Essential (primary) hypertension; K56.41 Fecal impaction; I95.9 Hypotension, unspecified; D72.819 Decreased white blood cell count, unspecified; F03.90 Unspecified dementia, unspecified severity, without behavioral disturbance, psychotic disturbance, mood disturbance, and anxiety; D63.8 Anemia in other chronic diseases classified elsewhere; M85.80 Other specified disorders of bone density and structure, unspecified site; J44.9 Chronic obstructive pulmonary disease, unspecified; Z20.822 Contact with and (suspected) exposure to COVID-19; Z86.73 Personal history of transient ischemic attack (TIA), and cerebral infarction without residual deficits; Z87.891 Personal history of nicotine dependence; Z90.49 Acquired absence of other specified parts of digestive tract; Z79.84 Long term (current) use of oral hypoglycemic drugs; Z86.718 Personal history of other venous thrombosis and embolism; Z91.030 Bee allergy status; Z68.29 Body mass index [BMI] 29.0-29.9, adult
CPT/HCPCS: 36415; 74018; 76376; 80053; 81000; 82150; 82962; 83605; 83690; 83735; 84100; 85025; 87040; 87086; 93005; 96374; 96375; 99291; C9113; G0378; J0696; J1650; J2001; J2405; J7060